=== PATIENT | female | born 1995 | race Caucasian/White ===

== ENCOUNTER 2017-10-26 21:35 | Inpatient (IN) | END 2017-10-29 12:30 | disposition home or self-care (01) | DRG 392 ==

== ENCOUNTER 2019-02-08 00:33 | Emergency (ER) | payer OTHER ==
[~2019-02-08] VITALS: Ht 157.5 cm; Wt 102.1 kg
[~2019-02-08 00:33] MED LIST: CIPR500T4 PO; METR500T PO; [UNRECOGNIZED DRUG - CODE] PO
[2019-02-08 00:36] VITALS: Ht 157.5 cm; Wt 102.1 kg
[2019-02-08] MEDS ORDERED: KETOROLAC 30 MG INJ IM STA (01:55)
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
[2019-02-08] MEDS ORDERED: HYDROCODONE/APAP (10/325) TAB PO ONE (02:00)
[2019-02-08] MEDS ORDERED: CYCL10TA7 PO (04:59)
[2019-02-08] MEDS ORDERED: IBUP800T48 PO (04:59)
[2019-02-08 05:22] VITALS: BP 131/83; PULSE 71; RESP 18
== END 2019-02-08 05:26 | disposition home or self-care (01) ==
LOC: FTE 00:33
DX: S30.0XXA Contusion of lower back and pelvis, initial encounter (principal); F17.210 Nicotine dependence, cigarettes, uncomplicated; M62.830 Muscle spasm of back; V43.62XA Car passenger injured in collision with other type car in traffic accident, initial encounter
CPT/HCPCS: 71046; 72040; 72100; 84703; 96372; 99284; J1885